=== PATIENT | female | born 1970 | race Caucasian/White ===

== ENCOUNTER 2017-10-27 22:54 | Emergency (ER) | payer MEDICARE ==
[2017-10-27] MEDS ORDERED: Sodium Chloride 0.9% 10 ML Syringe FLUSH PRN (23:03)
[2017-10-27] MEDS: Dextrose 5%-Lactated Ringers 1,000 ML IV SCH (23:05)
[2017-10-27] MEDS ORDERED: Dextrose 5%-0.9% NaCl 1,000 ML IV SCH (23:15)
[2017-10-27] MEDS: Glucagon,Human Recombinant 1 MG Vial IVPUSH ONE (23:23)
[2017-10-27] MEDS: 50% Dextrose in Water 50 ML Syringe IVPUSH ONE (23:23)
[2017-10-28] MEDS: Albuterol 0.083% 2.5 MG/3 ML Neb Soln NEB ONE (00:14)
[2017-10-28] MEDS: Calcium Chloride 10% 1 GM/10 ML Syringe IVPUSH ONE (00:28)
[2017-10-28] MEDS: Insulin Aspart 100 Units/ML 3 ML Pen SUBCUT ONE (00:30)
[2017-10-28] MEDS: 50% Dextrose in Water 50 ML Syringe IVPUSH ONE (00:30)
[2017-10-28] MEDS: Insulin Isophane NPH, Human 100 Units/ML 10 ML Vial SUBCUT ONE (00:36)
--- NOTE | 2017-10-28 01:18 | ER ---
DATE SEEN: 10/27/2017 CHIEF COMPLAINT: 1. Confusion. 2. Hypoglycemia. HISTORY OF PRESENT ILLNESS: This is a 47-year-old female with type 2 diabetes, chronic renal failure, tobacco abuse. She was brought in because of confusion and hypoglycemia at home. She was given some glucose and glucagon, IV fluids, but her potassium is still high and sugar is still low. According to the family, she has been confused on and off in the last 2 months and in fact, she has needed 1-on-1 care at home. There has been no report of any fever. However, she continues to smoke. PAST MEDICAL HISTORY: Type 2 diabetes, below-knee amputation x2, alteration of mental status. MEDICATIONS: Please see the electronic record. PHYSICAL EXAMINATION: GENERAL: She is restless. VITAL SIGNS: Her initial blood pressure is 125/57, respiratory rate is 24, temperature is normal, pulse is 92. EARS, NOSE AND THROAT: Negative. SKIN: Dusky. CHEST: Reduced breath sounds. Crepitations in the bases. CARDIOVASCULAR: Normal. MENTAL STATUS: Confused, disoriented, but arousable. NEUROLOGIC: No focal findings. EKG, she had peaked T-waves. Chest x-ray showed marked cardiomegaly. LABORATORY DATA: Revealed a potassium of 6.5, creatinine of 2.8, white cell count of 9.2. IMPRESSION: 1. Hypoglycemia. 2. Confusion and delirium. 3. Hyperkalemia. 4. Chronic renal failure. 5. Type 2 diabetes. 6. Tobacco abuse. 7. Congestive heart failure. PLAN: I gave her initially one amp of D50 and repeated it and then gave her some insulin to help to bring the sugar down. Albuterol was given to bring the potassium down. She will continue on D5 normal saline at 150 an hour hour. I called [facility] and will transfer to Dr. Huynh. Calcium gluconate was given for cardiac protection. She will go by [facility]. /[id number] VIRI/FARNAZ
[2017-10-28 01:50] VITALS: BP 126/57
--- NOTE | 2017-10-28 10:36 | CR ---
INDICATION: Unresponsive, type 1 diabetes. CHEST: An AP upright view of the chest 10/27/2017 was compared with 03/28/2015 and revealed evidence of interval median sternotomy with clips in a distribution suggesting CABG surgery - correlate clinically. Overlying EKG leads are noted. Double port central line is noted with its tip in the IVC area. An active infiltrate or effusion was not identified. The heart is enlarged. Poor inspiration in AP positioning does accentuate the size of the heart, however. Apparent electronic lead is noted overlying the left heart. MTDD
--- NOTE | 2017-10-31 01:14 | EDM.PDOC ---
ED HPI GENERAL MEDICAL PROBLEM - General Chief Complaint: General Stated Complaint: CONFUSE - Related Data Allergies Allergy/AdvReac Type Severity Reaction Status Date / Time clindamycin Allergy Nausea Verified 10/28/17 01:15 codeine Allergy Nausea Verified 10/28/17 01:15 fentanyl Allergy Hallucinati Verified 10/28/17 01:15 ons meperidine HCl [From Demerol] Allergy Nausea Verified 10/28/17 01:15 propoxyphene napsylate Allergy Nausea Verified 10/28/17 01:15 [From Darvocet-N 100] Home Meds: Home Meds Insulin Aspart [NovoLOG] 5 units SUBCUT 08,12 06/16/13 [History] Insulin Detemir [Levemir] 30 units SUBCUT ACBREAKFAST 06/16/13 [History] Aspirin 81 mg PO DAILY 03/28/15 [History] Carvedilol 25 mg PO BID 03/28/15 [History] Clopidogrel [Plavix] 75 mg PO DAILY 03/28/15 [History] Escitalopram [Lexapro] 20 mg PO DAILY 03/28/15 [History] Furosemide [Lasix] 40 mg PO DAILY 03/28/15 [History] Insulin Aspart [Novolog Flexpen] 7 units SUBCUT 1800 03/28/15 [History] Isosorbide Mononitrate [Imdur] 60 mg PO DAILY 03/28/15 [History] Lisinopril 5 mg PO DAILY 03/28/15 [History] Spironolactone [Aldactone] 12.5 mg PO DAILY 03/28/15 [History] atorvaSTATin [Lipitor] 40 mg PO QAM 03/28/15 [History] Past Medical History Cardiovascular History: Reports: Hypertension, Other (See Below) Other Cardiovascular History: low BP Respiratory History: Reports: COPD Gastrointestinal History: Reports: Cholelithiasis SCIENCE SPECIALIST History: Reports: Endocrine/Metabolic History: Reports: Diabetes, Type I - Past Surgical History GI Surgical History: Reports: Cholecystectomy Other Musculoskeletal Surgeries/Procedures:: BILAT AKA Social & Family History - Family History Family Medical History: Noncontributory - Tobacco Use Smoking Status *Q: Current Every Day Smoker Years of Tobacco use: 32 Packs/Tins Daily: 0.5 - Caffeine Use Caffeine Use: Reports: None - Recreational Drug Use Recreational Drug Use: No - Living Situation & Occupation Living situation: Reports: Occupation: Disabled Course - Vital Signs Last Recorded V/S: Last Vital Signs Temp 38.9 C H 10/28/17 00:49 Pulse 88 10/28/17 00:49 Resp 20 10/28/17 00:49 BP 126/57 L 10/28/17 00:49 Pulse Ox 95 10/28/17 00:49 - Orders/Labs/Meds Labs: Laboratory Tests 10/27/17 10/27/17 10/27/17 Range/Units 23:13 23:20 23:20 WBC 9.2 (4.5-12.0) X10-3/uL RBC 3.57 (3.23-5.20) x10(6)uL Hgb 11.1 L (11.5-15.5) g/dL Hct 35.6 (30.0-51.3) % MCV 99.9 H (80-96) fL MCH 31.1 (27.7-33.6) pg MCHC 31.1 L (32.2-35.4) g/dL RDW 18.2 H (11.5-15.5) % Plt Count 133 (125-369) X10(3)uL MPV 11.3 H (7.4-10.4) fL Add Manual Diff Yes Neutrophils % (Manual) 92 H (46-82) % Band Neutrophils % 2 (0-6) % Lymphocytes % (Manual) 5 L (13-37) % Monocytes % (Manual) 1 L (4-12) % Nucleated RBCs 1 H (0-0) /100WBC Anisocytosis Few Sodium 139 (135-145) mmol/L Potassium 6.5 H* (3.5-5.3) mmol/L Chloride 102 (100-110) mmol/L Carbon Dioxide 27 (21-32) mmol/L BUN 41 H (7-18) mg/dL Creatinine 2.8 H* (0.55-1.02) mg/dL Est Cr Clr Drug Dosing TNP Estimated GFR (MDRD) 18 L (>60) BUN/Creatinine Ratio 14.6 (9-20) Glucose 71 L (80-116) mg/dL POC Glucose 69 L (80-116) mg/dL Calcium 8.6 (8.6-10.2) mg/dL Total Bilirubin 0.8 (0.1-1.3) mg/dL AST 32 H (5-25) IU/L ALT 24 (12-36) U/L Alkaline Phosphatase 290 H (56-112) IU/L Troponin I (<0.017-0.056) ng/mL NT-Pro-B Natriuret Pep (<=125) pg/mL Total Protein 6.9 (6.0-8.0) g/dL Albumin 2.5 L (3.5-5.2) g/dL Globulin 4.4 g/dL Albumin/Globulin Ratio 0.6 10/27/17 10/27/17 Range/Units 23:20 23:20 WBC (4.5-12.0) X10-3/uL RBC (3.23-5.20) x10(6)uL Hgb (11.5-15.5) g/dL Hct (30.0-51.3) % MCV (80-96) fL MCH (27.7-33.6) pg MCHC (32.2-35.4) g/dL RDW (11.5-15.5) % Plt Count (125-369) X10(3)uL MPV (7.4-10.4) fL Add Manual Diff Neutrophils % (Manual) (46-82) % Band Neutrophils % (0-6) % Lymphocytes % (Manual) (13-37) % Monocytes % (Manual) (4-12) % Nucleated RBCs (0-0) /100WBC Anisocytosis Sodium (135-145) mmol/L Potassium (3.5-5.3) mmol/L Chloride (100-110) mmol/L Carbon Dioxide (21-32) mmol/L BUN (7-18) mg/dL Creatinine (0.55-1.02) mg/dL Est Cr Clr Drug Dosing Estimated GFR (MDRD) (>60) BUN/Creatinine Ratio (9-20) Glucose (80-116) mg/dL POC Glucose (80-116) mg/dL Calcium (8.6-10.2) mg/dL Total Bilirubin (0.1-1.3) mg/dL AST (5-25) IU/L ALT (12-36) U/L Alkaline Phosphatase (56-112) IU/L Troponin I 0.079 H* (<0.017-0.056) ng/mL NT-Pro-B Natriuret Pep 58132 H* (<=125) pg/mL Total Protein (6.0-8.0) g/dL Albumin (3.5-5.2) g/dL Globulin g/dL Albumin/Globulin Ratio Meds: Medications Discontinued Medications Generic Name Dose Route Start Last Admin Trade Name Freq PRN Reason Stop Dose Admin Albuterol 2.5 mg 10/28/17 00:03 10/28/17 00:14 Proventil Neb Soln NEB 10/28/17 00:04 2.5 mg ONETIME ONE Administration Calcium Chloride 1 gm 10/28/17 00:02 10/28/17 00:28 Calcium Chloride 10% IVPUSH 10/28/17 00:03 1 gm ONETIME ONE Administration Dextrose/Water 50 ml 10/27/17 23:19 10/27/17 23:23 Dextrose 50% In Water IVPUSH 10/27/17 23:20 50 ml ONETIME ONE Administration Dextrose/Water 50 ml 10/28/17 00:12 10/28/17 00:30 Dextrose 50% In Water IVPUSH 10/28/17 00:13 50 ml ONETIME ONE Administration Glucagon 1 mg 10/27/17 23:20 10/27/17 23:23 Glucagen IVPUSH 10/27/17 23:21 1 mg ONETIME ONE Administration Dextrose/Sodium Chloride 1,000 mls @ 150 mls/hr 10/27/17 23:15 Dextrose 5%-Normal Saline IV 10/27/17 23:15 ASDIRECTED ELVIN Dextrose/Lactated Ringer's 1,000 mls @ 150 mls/hr 10/27/17 23:00 10/27/17 23: 05 Dextrose 5%-Lactated Ringers IV 150 mls/hr ASDIRECTED ELIVN Administration Insulin Aspart 10 unit 10/28/17 00:20 10/28/17 00:30 Novolog SUBCUT 10/28/17 00:21 10 units ONETIME ONE Administration Insulin Human NPH 10 unit 10/28/17 00:10 10/28/17 00:36 Novolin N SUBCUT 10/28/17 00:11 Not Given ONETIME ONE Sodium Chloride 10 ml 10/27/17 23:03 Saline Flush FLUSH ASDIRECTED PRN Keep Vein Open Departure - Departure Disposition: DC/Tfer to Acute Hospital 02 - Discharge Information Referrals: PCP,Unknown [Primary Care Provider] - Forms: ED Department Discharge
== END 2017-10-28 00:45 ==
LOC: FB.ED 22:54
DX: E11.649 Type 2 diabetes mellitus with hypoglycemia without coma (principal); E87.5 Hyperkalemia; R41.0 Disorientation, unspecified; I13.0 Hypertensive heart and chronic kidney disease with heart failure and stage 1 through stage 4 chronic kidney disease, or unspecified chronic kidney disease; I11.0 Hypertensive heart disease with heart failure; I50.9 Heart failure, unspecified; E11.22 Type 2 diabetes mellitus with diabetic chronic kidney disease; N18.9 Chronic kidney disease, unspecified; F17.200 Nicotine dependence, unspecified, uncomplicated; Z79.4 Long term (current) use of insulin; Z79.82 Long term (current) use of aspirin; Z79.899 Other long term (current) drug therapy; Z79.01 Long term (current) use of anticoagulants; Z88.1 Allergy status to other antibiotic agents; Z88.5 Allergy status to narcotic agent; Z88.8 Allergy status to other drugs, medicaments and biological substances
CPT/HCPCS: 36415; 71045; 80053; 82962; 83880; 84484; 85025; 87040; 87077; 93005; 94640; 96361; 96374; 96375; 96376; 99285; A9270; J1610; J7042; 87186